=== PATIENT | female | born 1955 | race Caucasian/White ===

== ENCOUNTER → 2016-12-10 | Outpatient (CLI) | payer MEDICARE, MEDICAID ==
[~2016-12-10] MED LIST: CELEXA10 MG PO; COUMADIN ** IA5 MG PO; COUMADIN **IA7.5 MG PO; FLONASE 50 MCG/16 GM NOSE; NEURONTIN300 MG PO; PROAIR HFA8.5 GM INH; SINGULAIR10 MG PO; SYMBICORT 80-10.2 GM INH; THERA-VITE W/ B1 TAB PO; VITAMIN D1000 UNIT PO
== END | disposition disaster alternative care site (69) ==
LOC: GRAD 07:25
DX: M25.552 Pain in left hip (principal); S76.012A Strain of muscle, fascia and tendon of left hip, initial encounter; M76.9 Unspecified enthesopathy, lower limb, excluding foot; Z96.642 Presence of left artificial hip joint; X58.XXXA Exposure to other specified factors, initial encounter